=== PATIENT | female | born 1965 | race Caucasian/White ===

== ENCOUNTER 2016-12-03 10:00 | Inpatient (IN) | payer OTHER, MEDICAID ==
--- NOTE | 2017-01-03 22:25 | GHP ---
[f rep st] PREOP HISTORY AND PHYSICAL DATE OF ADMISSION: 01/07/2017 CURRENT COMPLAINT: Left shoulder pain. HISTORY OF PRESENT ILLNESS: The patient is a 51-year-old female with a long history of left shoulder pain worsening with use over time, particularly with the use of her wheelchair. She has undergone a n MRI revealing rotator cuff tear and labral tear. She wishes to have surgery in order to resolve th e problem. ALLERGIES: Include amoxicillin, Betadine and tigecycline. CURRENT MEDICATIONS: Include benzonatate, cyclobenzaprine, escitalopram, furosemide, topiramate and tramadol. PRIOR MEDICAL PROBLEMS: Include arthritis, leg and foot ulcers, migraines, UTIs. PRIOR SURGERIES: Include orthopedic surgery and other in 1966. SOCIAL HISTORY: She has never been a smoker. She is a social drinker. PHYSICAL EXAMINATION: HEENT: Pupils equal, round, reactive to light. CHEST: Clear to auscultation. HEART: Regular rate and rhythm. ABDOMEN: Soft and nontender. LEFT SHOULDER: Good range of jennyfer on with good strength except to the supraspinatus and a Speeds test. She is tender at the glenohumer al joint into the acromion. DIAGNOSTIC STUDIES: CT exam revealed left-sided supraspinatus tear with arthritis of the anterior gl enohumeral joint. A labral tear in that same area. ASSESSMENT: Patient is status post left shoulder impingement syndrome with rotator cuff tear and lab ral tear. PLAN: Take her to the operating room where she is to undergo a left shoulder scope with subacromial decompression, labral debridement, and rotator cuff repair. /[id number]/MODL
[2017-01-07] MEDS ORDERED: ACETAMINOPHEN 500 MG TAB PO ONE (06:00)
[2017-01-07] MEDS ORDERED: VANCOMYCIN PHARMACY TO DOSE MISC ONE (06:00)
[2017-01-07] MEDS ORDERED: VANCOMYCIN 1.75 GM in D5W 500 ML IV ONE (06:00)
[2017-01-07] MEDS ORDERED: BUPIVACAINE 0.5% 30 ML SDV ONE ×2 (06:44→13:04)
[2017-01-07] MEDS ORDERED: BACITRACIN 50,000 UNITS/10 ML SYR IRR ONE (06:46)
[2017-01-07] MEDS ORDERED: POLYMYXIN B SULFATE 500,000 UNIT/10 ML SYR IRR ONE (06:46)
--- NOTE | 2017-01-07 06:53 | PDANEPAE ---
ANE Past Medical History - Cardiovascular History Hx Hypertension: No Hx Arrhythmias: No Hx Chest Pain: No Hx Coronary Artery / Peripheral Vascular Disease: No Hx CHF / Valvular Disease: No Hx Palpitations: No - Pulmonary History Hx COPD: No Hx Asthma/Reactive Airway Disease: No Hx Recent Upper Respiratory Infection: Yes Hx Oxygen in Use at Home: Yes O2 in Use at Home (L/minute): 2l during day, 3l @ noc Hx Sleep Apnea: Yes Sleep Apnea Screening Result - Last Documented: Positive Pulmonary History Comment: alexy positive uses cpap- instructed pt to bring to hospital. recently hospitalized for bronchitis- has been on cont o2 since - Neurologic History Hx Cerebrovascular Accident: No Hx Seizures: Yes Hx Dementia: No Neurologic History Comment: spina bifida. seizures as a small child when shunt malfunctioned. hx of scoliosis- surgery as teenager - Endocrine History Hx Diabetes: No Hypothyroid: No Hyperthyroid: No Obesity: yes, severe - Renal History Hx Renal Disorders: Yes Renal History Comment: urostomy placed at 5 yo on right side. chronic uti's. right nephrectomy at 5 yo - Liver History Hx Hepatic Disorders: No - Neurological & Psychiatric Hx Hx Neurological and Psychiatric Disorders: Yes Neurological / Psychiatric History Comment: anxiety - Cancer History Hx Cancer: No - Congenital Disorder History Hx Congenital Disorders: Yes Congenital History Comment: spina bifida - GI History GERD: no Hx Gastrointestinal Disorders: No - Other Health History Other Health History: wears glasses. wheelchair bound. wound to coccyx currently - Chronic Pain History Chronic Pain: Yes (neck) - Surgical History Prior Surgeries: 45 surgeries total. in the last 5 yrs she's had a kayley and part of right fibula removed d/t infection ANE Review of Systems Review of Systems: - Exercise capacity Exercise capacity: limited by disability METS (RN): 1 METS - Systems Respiratory: Reports: no symptoms ANE Patient History - Allergies Allergies/Adverse Reactions: cephapirin [From Cefadyl] Allergy (Intermediate, Verified 01/07/17 11:59) amoxicillin Allergy (Verified 12/04/16 11:44) Rash povidone-iodine [From Betadine] Allergy (Verified 12/04/16 11:44) Rash soap [From Betadine] Allergy (Verified 12/04/16 11:44) Rash tigecycline Allergy (Verified 12/04/16 11:44) Vomiting - Home Medications Home Medications: ACETAMINOPHEN 12/04/16 [Last Taken 11/06/17] CYCLOBENZAPRINE HCL 12/04/16 [Last Taken 01/06/17] Escitalopram Oxalate 12/04/16 [Last Taken 01/06/17] TOPIRAMATE 12/04/16 [Last Taken 01/06/17] TRAMADOL HCL 12/04/16 [Last Taken 01/06/17] - Anes Hx Anes Hx: no prior problems - Smoking Hx Smoking Status: Never smoked - Family Anes Hx Family Anes Hx: neg - N/A Family Hx Anesthesia Complications: none ANE Labs/Vital Signs - Labs Result Diagrams: 01/07/17 07:20 - Vital Signs Height: 144.78 cm Weight: 121.109 kg ANE Physical Exam - Airway Neck exam: FROM Mallampati Score: Class 1 Mouth exam: normal dental/mouth exam - Pulmonary Pulmonary: no respiratory distress, no rales or rhonchi - Cardiovascular Cardiovascular: regular rate and rhythym - ASA Status ASA Status: III ANE Anesthesia Plan Anesthesia Plan: general endotracheal anesthesia Regional Anesthesia: supraclavicular BP NB Total IV Anesthesia: No Urgent/Emergent Case: Aliyah cameron completed preop but documented later for safe timely pt care
[2017-01-07] MEDS ORDERED: LIDOCAINE 1% 2 ML INJ ONE (06:58)
[2017-01-07] MEDS ORDERED: LIDOCAINE 1% 2 ML INJ ID PRN (07:08)
[2017-01-07] MEDS ORDERED: LR 1,000 ML IV ONE (07:08)
--- NOTE | 2017-01-07 07:20 | PDHPUP ---
History & Physical Update H&P update statement: This history and physical update is based on an assessment of the patient which was completed after admission or registration (within 24 hours), but prior to the surgery/procedure. H&P update: H&P reviewed & patient examined, no change in patient's condition since H&P completed
[2017-01-07 07:52] LABS: ANION GAP 14 mEq/L (8-16); CALCIUM 9.2 mg/dL (8.5-10.4); CARBON DIOXIDE 24 mEq/l (22-31); CHLORIDE 101 mEq/L (97-110); CREATININE 0.8 mg/dL (0.6-1.0); GLOMERULAR FILTRATION RATE > 60; GLUCOSE 93 mg/dL (70-100); POTASSIUM 5.4 mEq/L (3.5-5.2); SODIUM 139 mEq/L (134-144); SPECIMEN HEMOLYSIS 154
[2017-01-07] MEDS ORDERED: ALTEPLASE 2 MG VIAL IVP PRN (07:56)
[2017-01-07] MEDS ORDERED: EPINEPHrine 30 MG/30 ML MDV ONE (12:51)
[2017-01-07] MEDS ORDERED: MIDAZOLAM 2 MG/2 ML VIAL IVP ONE (12:59)
[2017-01-07] MEDS ORDERED: PROPOFOL 200 MG/20 ML VIAL ONE (13:10)
[2017-01-07] MEDS ORDERED: fentaNYL 100 MCG/2 ML INJ ONE (13:10)
[2017-01-07] MEDS ORDERED: DEXAMETHASONE 4 MG/ML VIAL ONE (13:12)
[2017-01-07] MEDS ORDERED: LIDOCAINE 2% 5 ML SDV ONE (13:12)
[2017-01-07] MEDS ORDERED: ROCURONIUM 50 MG/5 ML VIAL ONE (13:12)
[2017-01-07] MEDS ORDERED: ONDANSETRON 4 MG/2 ML VIAL ONE (13:12)
[2017-01-07] MEDS ORDERED: ROPIVACAINE HCL 150 MG/30 ML INJ ONE (13:14)
[2017-01-07] MEDS ORDERED: THROMBIN (BOVINE) 5,000 UNIT VIAL TP ONE (14:22)
[2017-01-07] MEDS ORDERED: CALCIUM CHLORIDE 1 GM/10 ML INJ ONE (14:22)
[2017-01-07] MEDS ORDERED: NALOXONE HCL 0.4 MG/ML INJ IVP PRN (14:38)
[2017-01-07] MEDS ORDERED: ACETAMINOPHEN 500 MG TAB PO PRN (14:38)
[2017-01-07] MEDS ORDERED: PROMETHAZINE HCL 25 MG/ML INJ IVP PRN (14:38)
[2017-01-07] MEDS ORDERED: HYDROCODONE/APAP 5/325 TAB PO PRN (14:38)
[2017-01-07] MEDS ORDERED: fentaNYL 100 MCG/2 ML INJ IVP PRN (14:38)
[2017-01-07] MEDS ORDERED: LABETALOL HCL 50 MG/10 ML SYR IVP PRN (14:38)
[2017-01-07] MEDS ORDERED: OXYCODONE/APAP 5/325 TAB PO PRN (14:38)
[2017-01-07] MEDS ORDERED: LR 500 ML IV PRN (14:38)
[2017-01-07] MEDS ORDERED: ONDANSETRON 4 MG/2 ML VIAL IVP PRN ×2 (14:38→15:14)
[2017-01-07] MEDS ORDERED: SUGAMMADEX SODIUM 200 MG/2 ML VIAL IVP ONE (15:07)
--- NOTE | 2017-01-07 15:13 | POSTOPPROG ---
Post Op Note Date of Operation: 01/07/17 Surgeon: Elsa Man Wringer And Setter: merritt Anesthesiologist: abilio Anesthesia: LMA Pre-op Diagnosis: l shoulder impingement with OA and labral tear Procedure: l shoulder scope with SAD and debride labrum/bicep/bursa/RC Inf/Abcess present in the surg proc area at time of surgery?: No Depth: Deep Incisional (Fascial) EBL: 100-500
[2017-01-07] MEDS ORDERED: ACETAMINOPHEN 325 MG TAB PO PRN (15:14)
--- NOTE | 2017-01-07 15:27 | POSTANESTH ---
Post Anesthetic Evaluation Cardiovascular Status: Normal, Stable Respiratory Status: Normal, Stable Level of Consciousness/Mental Status: Can Participate in Eval Pain Control: Adequate, Prn Tx Ordered Nausea/Vomiting Control: Adequate, Prn Tx Ordered Complications Possibly Related to Anesthesia: None Noted
--- NOTE | 2017-01-07 16:15 | GOP ---
[f rep st] OPERATIVE REPORT DATE OF OPERATION: 01/07/2017 SURGEON: Elsa Man MD CD MIXER: [place], certified SA, whose presence was medically necessary. ANESTHESIA: LMA. PREOPERATIVE DIAGNOSIS: Left shoulder impingement syndrome with labral tear, shoulder arthritis. POSTOPERATIVE DIAGNOSIS: Left shoulder impingement syndrome with labral tear, shoulder arthritis, wi th partial thickness tear of the biceps at its anchor, and partial-thickness tear of rotator cuff. PROCEDURE PERFORMED: Right shoulder arthroscopy with debridement of undersurface of rotator cuff, al chelsea with the biceps anchor, labrum, and chondroplasty of the glenohumeral joint with debridement of s ubacromial bursa and subacromial decompression. FINDINGS: INDICATIONS: This is a 51-year-old female with a long history of left shoulder pain, worsening with use and with time, particularly when using a wheelchair. She is wheelchair-bound secondary to spina bifida, and depends on her arms a great deal in order for activities of daily living to include mobil ity. CT arthrograms revealed labral tearing as well as a significant anterior acromial curve, partia l-thickness tear of the rotator cuff. She wishes to have surgery in order to resolve the problem. DESCRIPTION OF PROCEDURE: Patient brought to the operating room after the left side had been identif ied as the correct side by the patient, nurse and physician. Once in the operating room, she was giv en a scalene block on the left side. She was then placed under general anesthesia using an LMA. Onc e asleep, she was placed in a beach chair position with the left upper extremity sterilely prepped an d draped in usual fashion using GSI solution. Once prepped and draped, incision was made off the pos terolateral corner of the acromion with the camera introduced without difficulty. Inspection of the joint revealed grade 4 chondral changes to the glenoid and grade 3 chondral changes noted to the bradley ral head. There was significant fraying of the anterior, superior, and posterior portions of the lab rum, particularly around the biceps anchor. There was noted to be partial-thickness tear of the rota tor cuff where it attached on the greater tuberosity footprint. Therefore, using an in-to-out techni que, an anterior portal was made in superolateral coracoid process with 6 x [address] aced through the anterior portal, and a 3.5 mm smooth shaver was used to debride and debulk tears of the anterior, posterior and superior portions of the labrum; the biceps anchor; and the rotator cuff; as well as chondroplasty of the humeral head and of the glenoid. Once completed, all instruments we re removed from the shoulder and using the same portal sites, were reintroduced in subacromial space. There was an abundant amount of bursal tissue within the subacromial space which was debrided using a combination of shaver and arthroscopic Bovie tip. She was noted to have a short, sharp inferior spu r and acromionizer bur was brought through the posterior portal and used to remove that spur, until a chieving a flat ceiling. Attention was turned to the distal clavicle, which was noted to have a very small curve off its inferior portion; this was left alone secondary to its small height. Examinatio n of the rotator cuff revealed it to be frayed, particularly near the area of the greater tuberosity but no full-thickness tear was noted. All instruments were then removed from the subacromial space with 30 cc of Marcaine infused in the weber bacromial space, as well as Plasmagel. The portal sites were then closed using 3-0 nylon suture in a [id number] type stitch. The wounds were dressed with Xeroform, 4 x 4, and Tegaderm. She was c ompletely undraped in the operating room, had a sling placed on the left upper extremity. She was wo joe up, extubated, transferred onto a stretcher, and sent to recovery room in good condition. /[id number]/MODL
[2017-01-07] MEDS: KETOROLAC 15 MG/1 ML SDV IVP SCH (17:04)
[2017-01-08] MEDS ORDERED: VANCOMYCIN 1.25 GM in D5W 250 ML IV ONE
[2017-01-08] MEDS: KETOROLAC 15 MG/1 ML SDV IVP SCH ×3 (00:05→13:04)
[2017-01-08] MEDS ORDERED: ENOXAPARIN 40 MG/0.4 ML SYR SC SCH (09:00)
--- NOTE | 2017-01-08 10:09 | WOCRNPDOC ---
CAMERONCRN Advanced Assessment Note - Skin Integrity Problem, Advanced Assess Right Ischial Tuberosity Pressure Injury Dressing Type: Allevyn Life Dressing Description: Clean/Dry, Intact Exudate Amount: Scant Exudate Characteristic(s): Serosanguinous Integumentary Issue Intervention: Visualized Under Dressing Rachel Wound Tissue: Blanching, Erythema Rachel Wound Swelling: None Wound Bed Color: Purple, Red Wound Bed Constitution: Smooth Tissue Wound Edges: Attached, Well Defined Site Measurement - Head-to-Toe Length X Width X Depth (cm): 3.9x3.3x0.1 Pressure Injury Stage: Deep Tissue Injury (DTI) Pressure Injury Present on Admit: Yes Skin Integrity Problem Comment: Patient with a deep tissue injury on right buttock/ischial area. DTI is surrounded by partial thickness opening. No sign of infection. Offload side to side. Sacrum Pressure Injury Dressing Type: Open to Air Exudate Amount: Scant Exudate Characteristic(s): Serosanguinous Rachel Wound Tissue: Scarred Site Measurement - Head-to-Toe Length X Width X Depth (cm): 3.2x1x0.1 Pressure Injury Stage: Stage 2 Pressure Injury Present on Admit: Yes Skin Integrity Problem Comment: Patient's anatomy is abnormal and due to extensive scarring it is challenging to assess with anatomical landmarks. Best guess is that this wound is over superior sacrum area and is likely pressure mixed with moisture as it lies in a crevice/divit in her scarring. No rachel wound erythema noted. Per [employer] Bri patient is refusing turns at this time.
--- NOTE | 2017-01-08 11:56 | SOAPPROG ---
SOAP Progress Note Assessment/Plan: Assessment: Plan: - recheck tomorrow 01/08/17 11:56 Subjective: Doing well, no pain Objective: Vital Signs Temp Pulse Resp BP Pulse Ox 36.7 C 85 16 137/90 H 93 01/08/17 08:14 01/08/17 11:19 01/08/17 11:19 01/08/17 11:19 01/08/17 11:19 Laboratory Results 01/07/17 07:20 01/07/17 01/08/17 01/09/17 05:59 05:59 05:59 Intake Total 2650 Output Total 1355 Balance 1295 Dressing cdi, small serous fluid on posteriorn. NVI - Pending Discharge Pending Discharge Within 24 Hours: No Pending Discharge Within 48 Hours: No ICD10 Worksheet Patient Problems: Problems Problem Status Onset Left shoulder pain Acute - ICD10 Problem Qualifiers (1) Left shoulder pain
[2017-01-08] MEDS: HYDROCODONE/APAP 5/325 TAB PO PRN ×2 (13:05→19:55)
--- NOTE | 2017-01-08 16:32 | ASMTCMCOM ---
CM Note CM Note Notes: Pt had elective surgery for rotator cuff syndrome, wants to d/c to SNF. OT rec SNF, PT rec pending. Pt #1 choice is [facility], #2 [facility], #3 [facility] and #4 [facility]. referrals sent to each. CM to follow. D/c plan of care: SNF likely Friday. Date Signed: 01/08/2017 04:31 PM Electronically Signed By:HILARIO Sargent
[2017-01-08] MEDS: ENOXAPARIN 60 MG/0.6 ML SYR SC SCH (22:09)
[2017-01-09] MEDS: HYDROCODONE/APAP 5/325 TAB PO PRN ×2 (07:52→17:33)
[2017-01-09] MEDS: ENOXAPARIN 60 MG/0.6 ML SYR SC SCH ×2 (07:54→22:06)
--- NOTE | 2017-01-09 12:39 | SOAPPROG ---
SOAP Progress Note Assessment/Plan: Assessment: Plan: - recheck tomorrow, d/c to rehab tomorrow 01/08/17 11:56 01/09/17 12:39 Subjective: doing well, no pain Objective: Vital Signs Temp Pulse Resp BP Pulse Ox 37.1 C 84 16 164/76 H 91 L 01/09/17 11:21 01/09/17 11:21 01/09/17 11:21 01/09/17 11:21 01/09/17 11:21 Laboratory Results 01/07/17 07:20 01/08/17 01/09/17 01/10/17 05:59 05:59 05:59 Intake Total 2650 1300 Output Total 1355 1850 400 Balance 1295 -550 -400 dressing cdi, changed, nvi, - Time Spent With Patient Time Spent With Patient: 10 - Pending Discharge Pending Discharge Within 24 Hours: Yes Pending Discharge Within 48 Hours: No Pending Discharge Date: 01/10/17 Pending Discharge Time: 11:00 ICD10 Worksheet Patient Problems: Problems Problem Status Onset Left shoulder pain Acute - ICD10 Problem Qualifiers (1) Left shoulder pain
[2017-01-10] MEDS: HYDROCODONE/APAP 5/325 TAB PO PRN ×2 (08:06→15:44)
[2017-01-10] MEDS: ENOXAPARIN 60 MG/0.6 ML SYR SC SCH (08:07)
--- NOTE | 2017-01-10 10:32 | WOCRNPDOC ---
PABLO Advanced Assessment Note - Skin Integrity Problem, Advanced Assess Right Ischial Tuberosity Pressure Injury Dressing Type: Allevyn Life Dressing Description: Saturated Exudate Color: Red Exudate Characteristic(s): Bloody Integumentary Issue Intervention: Dressing Changed Tahmina Wound Tissue: Blanching, Erythema, Denuded, Scarred Wound Bed Color: Red Wound Bed Constitution: Red/Soddy-Daisy - Non Granular Tissue Site Odor: None Site Measurement - Head-to-Toe Length X Width X Depth (cm): Prox: 1.5x4.2x0.2cm. Distal: 1x2.1x0.2cm Pressure Injury Stage: Stage 3 Pressure Injury Present on Admit: Yes (Documented in H&P) Skin Integrity Problem Comment: 2 discrete, full-thickness wounds noted over patient's R ischial tuberosity, consistent in appearance w/ stage 3 pressure injury. Tahmina-wound skin is intact, but a mixture of denuded, raw skin, all currently blanching. Patient reports this is a chronic wound, for which she has been seeing a wound physician at [facility] for over a year. Wound was bleeding when site assessed, but hemostasis was achieved w/ pressure. Applied Optilock super absorbent over the wound, followed by an Allevyn Life dressing to hold it in place. Report given to news technical directorGERBER Tavares.
[2017-01-10 11:26] VITALS: BP 133/91; PULSE 82; RESP 16; TEMP 98.6; O2SAT 95
--- NOTE | 2017-01-10 13:00 | PDIAF ---
- Diagnosis Code Status: Full Code - Medication Management Discharge Medications: Medications to Continue on Transfer Acetaminophen [Tylenol ES 500 mg (*)] 1,000 mg PO Q8H PRN 01/07/17 [Last Taken 01/06/17] Albuterol Sulfate [Ventolin Hfa] 1 - 2 puffs IH Q4H PRN 01/07/17 [Last Taken Unknown] CYCLOBENZAPRINE HCL [Flexeril] 5 mg PO TID PRN 01/07/17 [Last Taken 01/06/17] Escitalopram Oxalate [Lexapro] 20 mg PO HS 01/07/17 [Last Taken 01/06/17] Ibuprofen [Motrin (*)] 400 mg PO Q4-6PRN PRN 01/07/17 [Last Taken Unknown] Topiramate [Topamax 25MG (*)] 50 mg PO HS 01/07/17 [Last Taken 01/06/17] traMADol [Ultram 50 mg (*)] 50 mg PO Q6H PRN 01/07/17 [Last Taken 01/06/17] Acetaminophen [Tylenol 325mg (*)] 325 - 650 mg PO Q4HRS PRN tab 01/10/17 [Last Taken Unknown] Enoxaparin [Lovenox 60 MG (*)] 60 mg SC BID syr 01/10/17 [Last Taken Unknown] Hydrocodone/APAP 5/325 [Valley 5/325 (*)] 1 - 2 tab PO Q3HRS PRN tab 01/10/17 [ Last Taken Unknown] Discharge Medications: Refer to the Discharge Home Medication list for PRN reason. PICC Care - Routine: N/A - Orders Services needed: Physical Therapy Diet Recommendation: no restrictions on diet Diet Texture: Regular Texture Diet Magana: Not applicable Wound Care Instructions: Keep dressings on for 7 days, then may remove. Sutures will be removed in the office. Sutures/Magdalene Site: left shoulder Activity/Weight Bearing Restrictions: May use left arm, ROM as tolerated, may use to push wheelchair when she tolerates, AROM and PROM are OK in all planes. No repair to protect. Sling for compfort as needed only. - Follow Up Care Current Providers and Referrals: JEREMIAH DIEHL [Primary Care Provider] -
--- NOTE | 2017-01-10 13:23 | SOAPPROG ---
SOAKI Progress Note Assessment/Plan: Assessment: Plan: - july d/c to SNF 01/08/17 11:56 01/09/17 12:39 01/10/17 13:23 Subjective: doing well Objective: Vital Signs Temp Pulse Resp BP Pulse Ox 37.0 C 82 16 133/91 H 95 01/10/17 11:55 01/10/17 11:55 01/10/17 11:55 01/10/17 11:55 01/10/17 11:55 Laboratory Results 01/07/17 07:20 01/09/17 01/10/17 01/11/17 05:59 05:59 05:59 Intake Total 1300 1590 250 Output Total 1850 2750 650 Balance -550 -1160 -400 nvi, cdi, - Time Spent With Patient Time Spent With Patient: 5 - Pending Discharge Pending Discharge Within 24 Hours: Yes Pending Discharge Within 48 Hours: No Pending Discharge Date: 01/11/17 Pending Discharge Time: 11:00 ICD10 Worksheet Patient Problems: Problems Problem Status Onset Left shoulder pain Acute - ICD10 Problem Qualifiers (1) Left shoulder pain
--- NOTE | 2017-01-10 16:32 | ASDISCHSUM ---
Discharge Information Plan Status:SNF Medically Cleared to Leave: Discharge Date:01/10/2017 03:57 PM D/C Disposition:Nursing Home Facility ADT D/C Disposition:Nursing Home Facility Projected Discharge Date:01/10/2017 11:00 AM Transportation at D/C:ALS/BLS Discharge Delay Reason: Follow-Up Date:01/10/2017 11:00 AM Discharge Slot: Final Diagnosis: Placement Information Referral Type:*Group Home/SNF Referral ID:[id number] Provider Name:[facility] Address 1:[address] Address 2: City:[place] Selection Factors: State:[place] Patient Contact Information Contact Name:JACKELINE Relationship:Mother Address:[address] [place] [address] City:[place] Alternate Phone: State/Zip Code:[place] [address] Email: Financial Information Financial Class: Primary Plan Desc:MEDICARE INPATIENT Primary Plan Number:[id number] Secondary Plan Desc:MEDICA[place] Secondary Plan Number:[id number] Assessment Information [facility] CM Progress Note CM Note CM Note Notes: Pt had elective surgery for rotator cuff syndrome, wants to d/c to SNF. OT rec SNF, PT rec pending. Pt #1 choice is [facility], #2 [facility], #3 [facility] and #4 [facility]. referrals sent to each. CM to follow. D/c plan of care: SNF likely Friday. Date Signed: 01/08/2017 04:31 PM Electronically Signed By:HILARIO Sargent [facility] CM Progress Note CM Note CM Note Notes: Pt medically stable for d/c to [facility]. Stretcher transport scheduled for 1529, billed to [facility]. Orders sent in [employer]. Date Signed: 01/10/2017 04:31 PM Electronically Signed By:HILARIO Sargent Intervention Information
--- NOTE | 2017-01-10 16:32 | ASMTCMCOM ---
CM Note CM Note Notes: Pt medically stable for d/c to [facility]. Stretcher transport scheduled for 0, billed to [facility]. Orders sent in [employer]. Date Signed: 01/10/2017 04:31 PM Electronically Signed By:HILARIO Sargent
== END 2017-01-10 15:57 | DRG 510 ==
LOC: F3N 01-07 05:15 → EDSTATUS 01-07 07:15 → F3N 01-07 16:08
PROVIDERS: ADMIT Orthopaedic Surgery; ATTEND Orthopaedic Surgery
PROC: 0LQ24ZZ Repair Left Shoulder Tendon, Percutaneous Endoscopic Approach (ICD-10-PCS; principal; 2017-01-07 07:15)
PROC: 0RBK4ZZ Excision of Left Shoulder Joint, Percutaneous Endoscopic Approach (ICD-10-PCS; principal; 2017-01-07 07:15)
PROC: 02HV33Z Insertion of Infusion Device into Superior Vena Cava, Percutaneous Approach (ICD-10-PCS; 2017-01-07 07:15)
DX: M75.112 Incomplete rotator cuff tear or rupture of left shoulder, not specified as traumatic (principal); M75.42 Impingement syndrome of left shoulder; M19.012 Primary osteoarthritis, left shoulder; L89.213 Pressure ulcer of right hip, stage 3; Q05.9 Spina bifida, unspecified; G82.20 Paraplegia, unspecified; G43.909 Migraine, unspecified, not intractable, without status migrainosus; E66.01 Morbid (severe) obesity due to excess calories; Z68.43 Body mass index [BMI] 50.0-59.9, adult; Z87.440 Personal history of urinary (tract) infections; Z99.3 Dependence on wheelchair
CPT/HCPCS: 97110-GO; 97163-GP; 97166-GO; 97530-GO; C1751; G8978-GP-CM; G8979-GP-CM; G8987-GO-CM; G8988-GO-CK; J0171; J1100; J1650; J1885; J2250; J2405; J2704; J2795; J3010; J3370